=== PATIENT | female | born 1975 | race African-American/Black ===

== ENCOUNTER 2016-09-16 10:00 | Emergency (ER) | payer OTHER, MEDICAID ==
[~2016-09-16] VITALS: Ht 170.2 cm; Wt 93.0 kg
[~2016-09-16 10:00] MED LIST: ALBU6.7H INH; ZITH250T PO
[2016-09-16 10:04] VITALS: BP 112/65; PULSE 81; RESP 16; TEMP 98.6; O2SAT 99
[2016-09-16] MEDS ORDERED: SODIUM CHLOR 0.9% 1000 ML INJ 1,000 ML IV ONE (10:30)
[2016-09-16] MEDS ORDERED: MORPHINE SULFATE 4 MG/ML INJ IV PUSH ONE (10:30)
[2016-09-16 10:40] LABS: BLOOD, URINE LARGE (NEG); GLUCOSE,URINE NEG (NEG); KETONE, URINE TRACE mg/dL (NEG); NITRITE,URINE NEG (NEG); PH, URINE 5.5 (5.0-8.5)
[2016-09-16 10:47] LABS: AUTOMATED NEUTROPHIL # 10.7 TH/MM3 (1.8-7.7); BASOPHIL # 0.3 TH/MM3 (0-0.2); BASOPHIL % 2.6 % (0.0-2.0); EOSINOPHIL % 0.1 % (0.0-4.0); HEMATOCRIT 39.1 % (35.0-46.0); HEMO FLAGS DIFF FINAL; LYMPH % 6.2 % (9.0-44.0); LYMPHOCYTE # 0.8 TH/MM3 (1.0-4.8); MEAN CELL VOLUME 83.7 FL (80.0-100.0); MEAN CORPUSCULAR HEMOGLOBIN 28.2 PG (27.0-34.0); MEAN CORPUSCULAR HGB CONC 33.7 % (32.0-36.0); MONO % 3.5 % (0.0-8.0); NEUT % 87.6 % (16.0-70.0); PLATELET COUNT 240 TH/MM3 (150-450); RED BLOOD COUNT 4.67 MIL/MM3 (4.00-5.30); RED CELL DISTRIBUTION WIDTH 13.7 % (11.6-17.2); WHITE BLOOD COUNT 12.2 TH/MM3 (4.0-11.0)
[2016-09-16 10:48] LABS: POTASSIUM 3.1 MEQ/L (3.5-5.1)
[2016-09-16 10:52] LABS: BICARBONATE 24.9 MEQ/L (21.0-32.0)
[2016-09-16 10:53] LABS: METHOD OF COLLECTION CLEAN CATCH; URINE COLOR YELLOW (YELLW/STRAW)
[2016-09-16 10:53] LABS: APTT (PATIENT) 34.7 SEC (24.3-30.1); INTERNATIONAL NORMALIZED RATIO 1.2 RATIO; PROTHROMBIN TIME - PATIENT 13.1 SEC (9.8-11.6)
[2016-09-16 10:54] LABS: BACTERIA, URINE MANY /hpf; COMMENT (UR) CULTURE INDICATED; CULTURE IF INDICATED CULTURE INDICATED; SQUAMOUS EPITHELIAL CELL URINE > 8 /hpf (0-5)
[2016-09-16 10:56] LABS: INDIRECT BILIRUBIN 0.2 MG/DL (0.0-0.8); TOTAL BILIRUBIN ADULT 0.3 MG/DL (0.2-1.0)
[2016-09-16] MEDS ORDERED: IOHEXOL 350 MG/ML 10 ML VIAL (for RAD DIAG) IV ONE (11:09)
[2016-09-16 11:15] VITALS: BP 111/69; PULSE 82; RESP 18; O2SAT 98
--- NOTE | 2016-09-16 11:21 | RADHPO ---
EXAM DATE/TIME: 09/16/2016 10:59 [place] COMPARISON: No previous studies available for comparison. INDICATIONS : Left lower quadrant pain and diarrhea x 2 days. IV CONTRAST: 80 cc Omnipaque 350 (iohexol) IV ORAL CONTRAST: No oral contrast ingested. RADIATION DOSE: 14.11 CTDIvol (mGy) MEDICAL HISTORY : Hypertension. SURGICAL HISTORY : Tubal ligation. ENCOUNTER: Initial ACUITY: 2 days PAIN SCALE: 9/10 LOCATION: Left lower quadrant TECHNIQUE: Volumetric scanning of the abdomen and pelvis was performed. Using automated exposure control and ad justment of the mA and/or kV according to patient size, radiation dose was kept as low as reasonably achievable to obtain optimal diagnostic quality images. FINDINGS: The lung base is are clear. The liver, spleen, pancreas, and adrenals are unremarkable. Mild there is bowel wall thickening thro ughout the colon suspicious for colitis. There is trace fluid in the pelvis. In the abdominal wall is intact Mild degenerative changes are present in the lower lumbar spine. CONCLUSION: Findings suspicious for the colitis worse in the ascending and transverse colon. Edi Harrison MD FACR on September 16, 2016 at 11:16 Board Certified Radiologist. This report was verified electronically.
[2016-09-16] MEDS ORDERED: METR-1 PO (12:23)
[2016-09-16] MEDS ORDERED: CIPR-9 PO (12:23)
[2016-09-16 12:24] VITALS: BP 127/57; PULSE 71; RESP 16; O2SAT 99
[2016-09-16] MEDS ORDERED: HYDR-3533 PO (12:24)
--- NOTE | 2016-09-16 12:24 | PD ---
HPI Chief Complaint: GI Complaint Time Seen by Provider: 10:15 Travel History International Travel<30 days: No Contact w/Intl Traveler<30days: No Traveled to known affect area: No History of Present Illness HPI Patient is a 41-year-old female comes in complaining of left-sided abdominal pain as well as diarrhea. She says this has been going on for the past 2 days and seems to be getting worse. She reports having a temperature of 103 yesterday. She took some ibuprofen and that brought on her fever. Currently she is afebrile. She's had some nausea, but no vomiting. She says she does not really have much of an appetite. She denies any dysuria. She says she's never had this before. [facility] Past Medical History Cardiovascular Problems: Yes Hypertension: Yes Respiratory: Yes (BRONCHITIS) Influenza Vaccination: No ?: Not LMP: 3 DAYS : 3 Para: 3 Tubal Ligation: Yes (2002) Past Surgical History Gynecologic Surgery: Yes (IRREGULAR PERIODS AND CRAMPING) Social History Alcohol Use: Yes (SOCIAL) Tobacco Use: Yes (05/23 PPD) Substance Use: No Allergies-Medications (Allergen,Severity, Reaction): Coded Allergies: Multivitamins (Verified Allergy, Severe, Anaphylaxis, 09/16/16) THROAT SWELLING AND RASH INSIDE THE THROAT Reported Meds & Prescriptions Reported Meds & Active Scripts Active Review of Systems Except as stated in HPI: all other systems reviewed are Neg General / Constitutional: Positive: Fever, Chills HENT: Positive: Headaches, No: Lightheadedness Cardiovascular: No: Chest Pain or Discomfort Respiratory: No: Shortness of Breath Gastrointestinal: Positive: Nausea, Diarrhea, Abdominal Pain, No: Vomiting Genitourinary: No: Decreased Urinary Output Musculoskeletal: Positive: Myalgias Skin: No Rash, No Change in Pigmentation Neurologic: No: Weakness, Dizziness Physical Exam Narrative GENERAL: Awake and alert, in no acute distress. SKIN: Focused skin assessment warm/dry. HEAD: Atraumatic. Normocephalic. EYES: Pupils equal and round. No scleral icterus. ENT: Mucous membranes pink and moist. NECK: Trachea midline. No JVD. CARDIOVASCULAR: Regular rate and rhythm. No murmur appreciated. RESPIRATORY: No accessory muscle use. Clear to auscultation. Breath sounds equal bilaterally. GASTROINTESTINAL: Abdomen soft, nondistended. Tender to palpation diffusely, worse on the left side. No rebound or guarding. MUSCULOSKELETAL: No obvious deformities. No clubbing. No cyanosis. No edema. NEUROLOGICAL: Awake and alert. No obvious cranial nerve deficits. Motor grossly within normal limits. Normal speech. PSYCHIATRIC: Appropriate mood and affect; insight and judgment normal. Data Data Last Documented VS Vital Signs Date Time Temp Pulse Resp B/P Pulse Ox O2 Delivery O2 Flow Rate FiO2 09/16/16 10:45 16 09/16/16 10:04 98.6 81 112/65 99 Orders Urinalysis - C+S If Indicated (09/16/16 10:07) Complete Blood Count With Diff (09/16/16 10:21) Basic Metabolic Panel (Bmp) (09/16/16 10:21) Hepatic Functional Panel (09/16/16 10:21) Act Partial Throm Time (Ptt) (09/16/16 10:21) Prothrombin Time / Inr (Pt) (09/16/16 10:21) Lipase (09/16/16 10:21) Lactic Acid (09/16/16 10:21) Ct Abd/Pel W Iv Contrast(Rout) (09/16/16 ) Sodium Chlor 0.9% 1000 Ml Inj (Ns 1000 M (09/16/16 10:30) Morphine Inj (Morphine Inj) (09/16/16 10:30) Urine Culture (09/16/16 10:18) Iohexol 350 Inj (Omnipaque 350 Inj) (09/16/16 11:09) Labs Laboratory Tests Test 09/16/16 09/16/16 10:18 10:36 Urine Collection Type CLEAN CATCH Urine Color YELLOW Urine Turbidity SLIGHT Urine pH 5.5 Urine Specific Bradford 1.022 Urine Protein 100 mg/dL Urine Glucose (UA) NEG mg/dL Urine Ketones TRACE mg/dL Urine Occult Blood LARGE Urine Nitrite NEG Urine Bilirubin NEG Urine Leukocyte Esterase SMALL Urine RBC 20-24 /hpf Urine WBC 20-24 /hpf Urine WBC Clumps FEW Urine Squamous Epithelial > 8 /hpf Cells Urine Bacteria MANY /hpf Microscopic Urinalysis Comment CULTURE INDICATED Urine Collection Time 10:18 White Blood Count 12.2 TH/MM3 Red Blood Count 4.67 MIL/MM3 Hemoglobin 13.1 GM/DL Hematocrit 39.1 % Mean Corpuscular Volume 83.7 FL Mean Corpuscular Hemoglobin 28.2 PG Mean Corpuscular Hemoglobin 33.7 % Concent Red Cell Distribution Width 13.7 % Platelet Count 240 TH/MM3 Mean Platelet Volume 8.9 FL Neutrophils (%) (Auto) 87.6 % Lymphocytes (%) (Auto) 6.2 % Monocytes (%) (Auto) 3.5 % Eosinophils (%) (Auto) 0.1 % Basophils (%) (Auto) 2.6 % Neutrophils # (Auto) 10.7 TH/MM3 Lymphocytes # (Auto) 0.8 TH/MM3 Monocytes # (Auto) 0.4 TH/MM3 Eosinophils # (Auto) 0.0 TH/MM3 Basophils # (Auto) 0.3 TH/MM3 CBC Comment DIFF FINAL Differential Comment Prothrombin Time 13.1 SEC Prothromb Time International 1.2 RATIO Ratio Activated Partial 34.7 SEC Thromboplast Time Sodium Level 139 MEQ/L Potassium Level 3.1 MEQ/L Chloride Level 105 MEQ/L Carbon Dioxide Level 24.9 MEQ/L Anion Gap 9 MEQ/L Blood Urea Nitrogen 10 MG/DL Creatinine 1.20 MG/DL Estimat Glomerular Filtration 60 ML/MIN Rate Random Glucose 101 MG/DL Lactic Acid Level 0.8 mmol/L Calcium Level 8.6 MG/DL Total Bilirubin 0.3 MG/DL Direct Bilirubin 0.1 MG/DL Indirect Bilirubin 0.2 MG/DL Aspartate Amino Transf 16 U/L (AST/SGOT) Alanine Aminotransferase 20 U/L (ALT/SGPT) Alkaline Phosphatase 89 U/L Total Protein 7.4 GM/DL Albumin 3.2 GM/DL Lipase 122 U/L [facility] Medical Decision Making Medical Screen Exam Complete: Yes Emergency Medical Condition: Yes Differential Diagnosis Colitis versus diverticulitis versus gastroenteritis Narrative Course Patient is a 41-year-old female comes in complaining of abdominal pain and diarrhea. Exam shows tenderness especially on the left side. IV established, labs sent. Labs show mild elevation in white blood cell count to 12.2. The abdomen and pelvis shows colitis, without complications. Urinalysis is positive for UTI. Patient given IV fluids and morphine with resolution of her symptoms. Will be discharged with prescriptions for Cipro and Flagyl as well as Lortab for severe pain. Patient advised drink plenty of fluids. Advised to avoid alcohol while taking her antibiotics. Advised to return to the ED at any time for any worsening symptoms. Diagnosis Primary Impression: Colitis Additional Impression: UTI (urinary tract infection) Qualified Code: N30.00 - Acute cystitis without hematuria Patient Instructions: General Instructions, Infectious Colitis (ED), Urinary Tract Infection in Women (ED) Additional Instructions: Drink plenty of fluids. Avoid alcohol while taking antibiotics. Make sure to take all of your antibiotics. Return to the ED as needed for any worsening symptoms. Scripts Hydrocodone-Acetaminophen (Lortab)5-325 Mg Tab1 Tab PO Q6H PRN (PAIN) #10 TAB Ref 0 Prov:Lucia Davila MD 09/16/16 Metronidazole (Flagyl)500 Mg [id number] Mg PO TID 7 Days Ref 0 Prov:Lucia Davila MD 09/16/16 Ciprofloxacin (Cipro)500 Mg [id number] Mg PO BID 7 Days Ref 0 Prov:Lucia Davila MD 09/16/16 Disposition: 01 DISCHARGE HOME Condition: Stable Lucia Davila MD Sep 16, 2016 12:24
== END 2016-09-16 12:35 | disposition home or self-care (01) ==
LOC: PHED 10:00
DX: K52.9 Noninfective gastroenteritis and colitis, unspecified (principal); N39.0 Urinary tract infection, site not specified; I10 Essential (primary) hypertension; F17.210 Nicotine dependence, cigarettes, uncomplicated
CPT/HCPCS: 74177; 80048; 80076; 81001; 83605; 83690; 85025; 85610; 85730; 87086; 96374; 99284; J2270; J7030; Q9967

== ENCOUNTER 2016-09-18 15:48 | Emergency (ER) | payer OTHER, MEDICAID ==
[~2016-09-18] VITALS: Ht 170.2 cm; Wt 95.4 kg
[~2016-09-18 15:48] MED LIST changes: -ALBU6.7H INH; +CIPR-9 PO; +HYDR-3533 PO; +METR-1 PO; -ZITH250T PO
[2016-09-18 15:55] VITALS: BP 152/96; PULSE 69; RESP 15; TEMP 98.2; O2SAT 100
[2016-09-18] MEDS ORDERED: SODIUM CHLOR 0.9% 1000 ML INJ 1,000 ML IV SCH (17:21)
[2016-09-18] MEDS ORDERED: methylPREDNISolone SOD SUCC 125 MG/2 ML VIAL IVP ONE (17:30)
[2016-09-18] MEDS ORDERED: FAMOTIDINE 20 MG/2 ML VIAL IV PUSH ONE (17:30)
[2016-09-18] MEDS ORDERED: diphenhydrAMINE HCL 50 MG/ML VIAL IVP ONE (17:30)
[2016-09-18] MEDS ORDERED: SODIUM CHLORIDE 0.9% FLUSH 10 ML FLUSH IV FLUSH PRN (17:30)
[2016-09-18 17:56] VITALS: RESP 14; O2SAT 98
[2016-09-18] MEDS ORDERED: AUGM875T PO (17:58)
--- NOTE | 2016-09-18 17:59 | PD ---
HPI Chief Complaint: Allergic/Adverse Reaction Time Seen by Provider: 16:47 Travel History International Travel<30 days: No Contact w/Intl Traveler<30days: No Traveled to known affect area: No History of Present Illness HPI 41-year-old female arrives complaining of lip lesions. She started Cipro and Flagyl several days ago for diagnosis of diverticulitis. Her GI symptoms have resolved however she reports the lip lesions to be somewhat painful. She's had no difficulty breathing however it is somewhat painful to swallow. She's had no rash. Duration about 1 day. She tried Benadryl at home with no significant change. PFSH Past Medical History Cardiovascular Problems: Yes Diminished Hearing: No Hypertension: Yes Respiratory: Yes (BRONCHITIS) Immunizations Current: Yes Tetanus Vaccination: > 5 Years Influenza Vaccination: No ?: Not LMP: 5 DAYS : 3 Para: 3 Tubal Ligation: Yes (2002) Past Surgical History Gynecologic Surgery: Yes (IRREGULAR PERIODS AND CRAMPING) Social History Alcohol Use: Yes (SOCIAL) Tobacco Use: Yes (05/23 PPD) Substance Use: No Allergies-Medications (Allergen,Severity, Reaction): Coded Allergies: Multivitamins (Verified Allergy, Severe, Anaphylaxis, 09/18/16) THROAT SWELLING AND RASH INSIDE THE THROAT Ciprofloxacin (Verified Allergy, Unknown, Ulcers, 09/18/16) Lip lesions Flagyl (Verified Allergy, Unknown, 09/18/16) Lip lesions Reported Meds & Prescriptions Reported Meds & Active Scripts Active Augmentin (Amoxicillin-Clavulanate) 875-125 mg Tab 875 Mg PO BID not for use in CrCl <30 ml/min. Lortab (Hydrocodone-Acetaminophen) 5-325 Mg Tab 1 Tab PO Q6H PRN Flagyl (Metronidazole) 500 Mg Tab 500 Mg PO TID 7 Days Cipro (Ciprofloxacin HCl) 500 Mg Tab 500 Mg PO BID 7 Days Review of Systems Except as stated in HPI: all other systems reviewed are Neg Physical Exam Narrative GENERAL: 41 yo female pleasant well-nourished well-developed SKIN: Focused skin assessment warm/dry. HEAD: Atraumatic. Normocephalic. EYES: Pupils equal and round. No scleral icterus. No injection or drainage. ENT: No nasal bleeding or discharge. Mucous membranes pink and moist. The oropharynx is normal intact without ulceration or lesion concerning for dermatologic emergency. The upper lips show about 5 mm or so of erythema on each side which is fairly mild and only appreciable on very careful inspection. NECK: Trachea midline. No JVD. CARDIOVASCULAR: Regular rate and rhythm. No murmur appreciated. RESPIRATORY: No accessory muscle use. Clear to auscultation. Breath sounds equal bilaterally. GASTROINTESTINAL: Abdomen soft, non-tender, nondistended. Hepatic and splenic margins not palpable. MUSCULOSKELETAL: No obvious deformities. No clubbing. No cyanosis. No edema. NEUROLOGICAL: Awake and alert. No obvious cranial nerve deficits. Motor grossly within normal limits. Normal speech. PSYCHIATRIC: Appropriate mood and affect; insight and judgment normal. Data Data Last Documented VS Vital Signs Date Time Temp Pulse Resp B/P Pulse Ox O2 Delivery O2 Flow Rate FiO2 09/18/16 17:56 14 98 Room Air 09/18/16 15:55 98.2 69 152/96 Vital signs reviewed Orders Ecg Monitoring (09/18/16 17:21) Iv Access Insert/Monitor (09/18/16 17:21) Oximetry (09/18/16 17:21) Methylprednisolone So Succ Inj (Solumedr (09/18/16 17:30) Famotidine Inj (Pepcid Inj) (09/18/16 17:30) Sodium Chlor 0.9% 1000 Ml Inj (Ns 1000 M (09/18/16 17:21) Sodium Chloride 0.9% Flush (Ns Flush) (09/18/16 17:30) Diphenhydramine Inj (Benadryl Inj) (09/18/16 17:30) MDM Medical Decision Making Medical Screen Exam Complete: Yes Emergency Medical Condition: Yes Medical Record Reviewed: Yes Differential Diagnosis Jones-Jamarcus's, toxic epidermal necrolysis, drug reaction, HSV Narrative Course Patient received Solu-Medrol. Benadryl, 20 mg of Pepcid as well as IV fluids. SJS/TENS or anaphylaxis type response considered less likely. She will discontinue the Cipro and Flagyl. We'll prescribe Augmentin instead. Return precautions discussed. Pt observed resting comfortably a few times during ER stay. Minimal improvement of upper lip upon reassessment prior to discharge. Patient ready for discharge. Diagnosis Primary Impression: Drug reaction Qualified Code: T88.7XXA - Drug reaction, initial encounter Referrals: Primary Care Physician Additional Instructions: You have a choice when it comes to health care, and we are glad that you chose [facility]. Hopefully, we have met your expectations on today's visit. You are welcome to return to [facility] at any time, as we are committed to meeting the health care needs of our community. Med/Other Pt SpecificInfo: Prescription(s) given Scripts Amoxicillin-Clavulanate (Augmentin)875-125 mg [id number] Mg PO BID #10 TAB Ref 0 not for use in CrCl <30 ml/min. Prov:Dany Sanchez MD 09/18/16 Disposition: 01 DISCHARGE HOME Condition: Stable (ERASED) Dany Sanchez MD Sep 18, 2016 17:59
== END 2016-09-18 18:37 | disposition home or self-care (01) ==
LOC: PHED 15:48
DX: T50.905A Adverse effect of unspecified drugs, medicaments and biological substances, initial encounter (principal); I10 Essential (primary) hypertension; F17.210 Nicotine dependence, cigarettes, uncomplicated
CPT/HCPCS: 96374; 96375; 99283; J1200; J2930; J7030